=== PATIENT | male | born 1935 | race Caucasian/White ===

== ENCOUNTER 2017-08-27 05:13 | Emergency (ER) | payer OTHER ==
--- NOTE | 2017-08-27 06:14 | EDM.PDOC ---
ED HPI GENERAL MEDICAL PROBLEM - General Chief Complaint: Fever Stated Complaint: FEVER / WEAKNESS Time Seen by Provider: 08/27/17 06:05 Source of Information: Reports: Patient, Family History Limitations: Reports: No Limitations - History of Present Illness INITIAL COMMENTS - FREE TEXT/NARRATIVE: 82-year-old male who has had fevers and chills waxing and waning for the last 5 days, generalized malaise and joint pains. He was seen at the [place] emergency room yesterday, was checked for influenza and "lots of blood tests". He was told that his white blood cell count was "low" and he likely had a virus. He was to recheck with his primary provider next week to discuss the blood tests. They also did a chest x-ray which they said was normal. He has diffuse weakness, malaise, decreased appetite. He has been back from [place] for 3 weeks and takes a daily walk through the [facility], one-mile. He has no tick bites he knows of or rashes, although his joints are aching and mildly swollen they're not red or warm. He has no nausea or vomiting, no abdominal pain, a very mild intermittent headache is present. Onset: Gradual (Over the past 5-6 days) Severity: Moderate Associated Symptoms: Reports: Diaphoresis, Fever/Chills, Headaches, Loss of Appetite, Malaise, Shortness of Breath, Other (Joint pains, especially the knees ) Treatments [employer]: Reports: NSAIDS Headache Pain Score (Numeric/FACES): 4 Joints Pain Score (Numeric/FACES): 8 - Related Data Allergies Allergy/AdvReac Type Severity Reaction Status Date / Time No Known Allergies Allergy Verified 08/27/17 05:55 Home Meds: Home Meds NK [No Known Home Meds] 08/27/17 [History] Past Medical History Oncologic (Cancer) History: Reports: Basal Cell Carcinoma - Infectious Disease History Infectious Disease History: Reports: Chicken Pox - Past Surgical History HEENT Surgical History: Reports: Cataract Surgery GI Surgical History: Reports: Colonoscopy, EGD, Hernia, Inguinal Musculoskeletal Surgical History: Reports: Knee Replacement Social & Family History - Tobacco Use Smoking Status *Q: Never Smoker Second Hand Smoke Exposure: No - Caffeine Use Caffeine Use: Reports: Coffee - Recreational Drug Use Recreational Drug Use: No ED ROS GENERAL - Review of Systems Review Of Systems: See Below Constitutional: Reports: Fever, Chills, Malaise, Weakness HEENT: Reports: No Symptoms Respiratory: Reports: Shortness of Breath (Especially with activity). Denies: Cough Cardiovascular: Denies: Chest Pain, Palpitations Endocrine: Reports: Fatigue GI/Abdominal: Reports: Decreased Appetite. Denies: Abdominal Pain, Nausea, Vomiting : Reports: No Symptoms Musculoskeletal: Reports: Joint Pain Skin: Reports: Diaphoresis Neurological: Reports: Headache, Weakness Psychiatric: Reports: No Symptoms ED EXAM, GENERAL - Physical Exam Exam: See Below Exam Limited By: No Limitations General Appearance: Alert, No Apparent Distress Eye Exam: Bilateral Eye: Normal Inspection (Normal hydration, no jaundice) Throat/Mouth: Normal Inspection Head: Atraumatic Respiratory/Chest: No Respiratory Distress, Lungs Clear Cardiovascular: Regular Rate, Rhythm GI/Abdominal: Soft, Non-Tender Extremities: No: Pedal Edema Neurological: Alert, Oriented Skin Exam: Warm, Diaphoretic Course - Vital Signs Last Recorded V/S: Last Vital Signs Temp 101.1 F H 08/27/17 05:50 Pulse 96 08/27/17 05:50 Resp 20 08/27/17 05:50 BP 132/65 08/27/17 05:50 Pulse Ox 98 08/27/17 05:50 - Orders/Labs/Meds Orders: Active Orders 24 hr Category Date Time Status BABESIA MICROTI ANTIBODY PANEL Stat Lab 08/27/17 06:32 Received E. CHAFFEENSIS-HME (MONOCYTIC) Stat Lab 08/27/17 06:32 Received Meds: Medications Discontinued Medications Generic Name Dose Route Start Last Admin Trade Name Freq PRN Reason Stop Dose Admin Doxycycline Hyclate 100 mg 08/27/17 06:21 08/27/17 06:31 Vibramycin PO 08/27/17 06:22 100 mg ONETIME ONE Administration - Re-Assessments/Exams Free Text/Narrative Re-Assessment/Exam: 08/27/17 06:33 Lymes, anaplasmosis and babesiosis titers were drawn. Patient was started on doxycycline 100 mg twice daily and will concentrate on staying hydrated. Recheck next week with his primary as planned, or return to the emergency room if worsening. Departure - Departure Time of Disposition: 06:42 Disposition: Home, Self-Care 01 Condition: Fair Clinical Impression: Fever and chills, Weakness Joint pain Qualifiers: Joint pain location: knee Laterality: bilateral Qualified Code(s): M25.561 - Pain in right knee - Discharge Information Instructions: Fever, Adult, [id number] Referrals: PCP,None [Primary Care Provider] - Forms: ED Department Discharge Care Plan Goals: Rest, fluids, and increase activity as tolerated. Take antibiotic twice daily as prescribed, return to the emergency room at any time if you feel you are worsening despite treatment. Recheck with your primary provider next week as planned and continue antibiotic if improving. - My Orders Last 24 Hours: My Active Orders 08/27/17 06:32 BABESIA MICROTI ANTIBODY PANEL Stat E. CHAFFEENSIS-HME (MONOCYTIC) Stat - Assessment/Plan Last 24 Hours: My Active Orders 08/27/17 06:32 BABESIA MICROTI ANTIBODY PANEL Stat E. CHAFFEENSIS-HME (MONOCYTIC) Stat
[2017-08-27] MEDS ORDERED: Doxycycline 100 MG Cap PO ONE (06:21)
[2017-08-31 16:11] LABS: BABESIA MICROTI IGG <1:10 (Neg:<1:10); BABESIA MICROTI IGM <1:10 (Neg:<1:10)
[2017-08-31 17:11] LABS: E. CHAFFEENSIS (HME) IGG TITER Negative (Neg:<1:64); E. CHAFFEENSIS (HME) IGM TITER Negative (Neg:<1:20)
== END 2017-08-27 06:43 | disposition home or self-care (01) ==
LOC: JP.ED 05:13
DX: R50.9 Fever, unspecified (principal); R53.1 Weakness; M25.561 Pain in right knee; R53.81 Other malaise
CPT/HCPCS: 86666; 86753; 99284; A9270